=== PATIENT | male | born 1975 | race Caucasian/White ===

== ENCOUNTER 2023-11-25 15:15 | Emergency (ER) | payer OTHER, SELFPAY ==
[2023-11-25 15:26] VITALS: BP 150/96; PULSE 96; RESP 16; TEMP 36.6; O2SAT 96; BMI 31.5
--- NOTE | 2023-11-25 15:47 | DI.RAD.S_ITS ---
PROCEDURE: XR KNEE RT 3V INDICATIONS: knee pain TECHNIQUE: 3 views of the knee were acquired. COMPARISON: None. FINDINGS: Bones: No fractures or dislocations. No suspicious bony lesions. Fire-rc-eewocdsl appearance of tricompartmental arthritic change. Periarticular osteophytes are present without erosions. There is a prominent osteophyte along the medial aspect of the patella. Soft tissues: Moderate effusion. No suspicious soft tissue calcifications. IMPRESSION: Moderate effusion. No visualized acute fracture or dislocation. However, if clinical concern and/or pain persist, short interval imaging followup in 7-10 days is recommended, as occult injury cannot be definitively excluded. Dictated by: Karen Quinones M.D. on 11/25/2023 at 16:20 Approved by: Karen Quinones M.D. on 11/25/2023 at 16:21
--- NOTE | 2023-11-25 16:37 | ED_ITS ---
HPI - Extremity Problem <Alyssia Paul PA-C - Last Filed: 11/25/23 18:35> General Chief complaint: Extremity Problem,Nontraumatic Stated complaint: knee pain Time Seen by Provider: 11/25/23 16:20 Source: patient Mode of arrival: Ambulatory History of Present Illness HPI Narrative: 48yo M presents with concern for right knee pain for 2-3 days, twisted knee and heard a pop while walking around a corner. Has had multiple knee surgeries during career. Has been treating with rachel doe and devika at home which has not worked well for pain. Patient states he has a supportive knee brace with metal bracing on the sides and also has crutches at home. [place] until [place]. Patient will be able to take tomorrow off work but anticipates having to go to work on Tuesday possibly Tuesday will use crutches and try to stay off of his knee as much as possible but does have to be on his feet somewhat work. Related Data Previous Rx's Medication Instructions Recorded hydrocodone 5 mg-acetaminophen 325 1 tab PO Q4-6H PRN pain 3 days #16 11/25/23 mg tablet tabs ondansetron 4 mg disintegrating 4 mg PO Q8H PRN nausea and 11/25/23 tablet vomiting 4 days #12 tabs Allergies Allergy/AdvReac Type Severity Reaction Status Date / Time No Known Drug Allergies Allergy Verified 11/25/23 15:29 Review of Systems <Alyssia Paul PA-C - Last Filed: 11/25/23 18:35> Review of Systems Narrative: See HPI Patient History <Alyssia Paul PA-C - Last Filed: 11/25/23 18:35> Social History Smoking Status: Former smoker Smoking Status: Former smoker alcohol intake frequency: 0-2 drinks per day Substance Use Type: does not use Exam <Alyssia Paul PA-C - Last Filed: 11/25/23 18:35> Narrative Exam Narrative: GENERAL: [48] year old patient appears stated age. Well-developed patient, in mild distress. HEAD: Atraumatic. Normocephalic. EYES: Pupils equal round and reactive. Extraocular motions intact. No scleral icterus. No injection or drainage. ENT: Nose without bleeding, purulent drainage. Airway patent. NECK: Trachea midline. CARDIOVASCULAR: Regular rate and rhythm without murmurs, gallops, or rubs. RESPIRATORY: Clear to auscultation. Breath sounds equal bilaterally. No wheezes, rales, or rhonchi. EXTREMITIES: The affected right knee has tenderness anteriorly at the patellar tendon and significant tenderness over the medial joint line, there is no laxity with grind test or anterior/posterior drawer. There is significant increased pain with varus and valgus stress. There is mild swelling noted anteriorly and medially anteriorly. Strong pedal pulse. No other edema or joint tenderness. NEURO: AOx3. SKIN: No rash or erythema of visible areas Initial Vital Signs Initial Vital Signs: Vital Signs Temperature 97.8 F 11/25/23 15:26 Pulse Rate 96 H 11/25/23 15:26 Respiratory Rate 16 11/25/23 15:26 Blood Pressure 150/96 H 11/25/23 15:26 Pulse Oximetry 96 11/25/23 15:26 Oxygen Delivery Method Room Air 11/25/23 15:26 <Latisha Matos MD - Last Filed: 11/26/23 17:51> Initial Vital Signs Initial Vital Signs: Vital Signs Temperature 97.8 F 11/25/23 15:26 Pulse Rate 96 H 11/25/23 15:26 Respiratory Rate 16 11/25/23 15:26 Blood Pressure 150/96 H 11/25/23 15:26 Pulse Oximetry 96 11/25/23 15:26 Oxygen Delivery Method Room Air 11/25/23 15:26 Course <Alyssia Paul PA-C - Last Filed: 11/25/23 18:35> Orders Ordered: ED Orders 11/25/23 15:47 XR knee RT 3V Stat Vital Signs Vital signs: Vital Signs - 8 hr 11/25/23 15:26 Temperature 97.8 F Pulse Rate 96 H Respiratory Rate 16 Blood Pressure 150/96 H Pulse Oximetry 96 Oxygen Delivery Method Room Air <Latisha Matos MD - Last Filed: 11/26/23 17:51> Orders Ordered: ED Orders 11/25/23 15:47 XR knee RT 3V Stat Vital Signs Vital signs: Vital Signs - 8 hr 11/25/23 15:26 Temperature 97.8 F Pulse Rate 96 H Respiratory Rate 16 Blood Pressure 150/96 H Pulse Oximetry 96 Oxygen Delivery Method Room Air MDM - Extremity (Nontraumatic) <Alyssia Paul PA-C - Last Filed: 11/25/23 18:35> Differential Diagnosis Differential diagnosis: Likely other (Knee sprain/strain) Imaging Data Extremity x-ray #1: Radiologist's Impression: [address] [address] XRay Report Signed Patient: Jimmie Herr MR#: [id number] : 1975 Acct:[id number] Age/Sex: 48 / M Date of Service: 11/25/23 Loc: ED Accession Number: [id number] Procedure: XR knee RT 3V Ordering Provider: Alyssia Paul P.A-C PROCEDURE: XR KNEE RT 3V INDICATIONS: knee pain TECHNIQUE: 3 views of the knee were acquired. COMPARISON: None. FINDINGS: Bones: No fractures or dislocations. No suspicious bony lesions. [id number]-[id number] appearance of tricompartmental arthritic change. Periarticular osteophytes are present without erosions. There is a prominent osteophyte along the medial aspect of the patella. Soft tissues: Moderate effusion. No suspicious soft tissue calcifications. IMPRESSION: Moderate effusion. No visualized acute fracture or dislocation. However, if clinical concern and/or pain persist, short interval imaging followup in 7-10 days is recommended, as occult injury cannot be definitively excluded. Dictated by: Karen Quinones M.D. on 11/25/2023 at 16:20 Approved by: Karen Quinones M.D. on 11/25/2023 at 16:21 [facility] Narrative Medical decision making narrative: This is a 48-year-old male with history of multiple knee surgeries and injuries presenting with concern for knee pain since 3 days ago when he heard and felt pop when turning a corner while walking. Exam and history are suggestive of a knee sprain/strain. Patient declines crutches and knee brace as he already has these at home, [place] can not get in prior to then. He has been tolerating the pain thus far but came in today for further evaluation x-ray and assistance with pain control. X-rays do show a joint effusion. Patient is advised to stay off his leg as much as possible use knee brace and crutches as much as possible until he sees Orthopedics and they can discuss further plan with him. Encouraged to take Tylenol and Motrin/Advil, prescription for hydrocodone for 3 day course to be used as needed, as well as Zofran as patient states he often gets nauseous when he takes opioid pain medicines. Return precautions provided, follow-up plan discussed, all questions answered. Discharge Plan Departure Patient Disposition: Home Clinical Impression: Right knee sprain Qualifiers: Encounter type: initial encounter Involved ligament of knee: unspecified ligament Qualified Code(s): S83.91XA - Sprain of unspecified site of right knee, initial encounter Activity Restrictions/Additional Instructions: *You have been diagnosed with [right knee sprain] *What to do: *Please continue to take your regular medications as directed. [2 ] New medication prescriptions sent to your pharmacy: [Zofran and hydrocodone] [ ] New medication written as a paper prescription [ ] No new medications given *Please follow up with your primary care provider in 2-3 days, call for an appointment. Let them know you were seen in the Emergency Department and that we ask that you be seen in follow up. We will electronically transmit a record of today's note if your PCP is in our system. Because of your previous knee injuries and surgeries you already have crutches and a knee brace, I would strongly encourage you to use both of these as I suspect you did re-injure her knee recently you have a fluid collection in your knee visible on x-ray today although it is difficult to determine the exact nature of your injury with just an x-ray. Recommend he follow up closely with Orthopedics, it sounds [place] I have prescribed a short course of pain medicine for you to be used if needed please do not take this with alcohol or any sedating medications. Start with Tylenol and Motrin or Advil and use the stronger medicine if needed. Also prescribed some antinausea medicine. Try to keep her leg elevated and stay off of it as much as possible over the next few days. Until you can get him in for further evaluation by orthopedics. I I hope you feel better soon. *If you do not have a primary care provider please contact the [facility] Resource line at [phone]. They will ask some questions about your medical history and help get you set up with a doctor in the community. *Return to Emergency Department if you should have any new, worsening or concerning symptoms, such as [fever greater than 101 F, shaking chills, worsening pain, persistent vomiting or other bothersome symptoms] Prescriptions: New hydrocodone-acetaminophen 5-325 mg tablet 1 tab PO Q4-6H PRN (Reason: pain) 3 Days Qty: 16 0RF ondansetron 4 mg tablet,disintegrating 4 mg PO Q8H PRN (Reason: nausea and vomiting) 4 Days Qty: 12 0RF Referrals: Provider,Antonia GE [Primary Care Provider] - Stand Alone Forms: Patient Portal/API ED Sign-out <Latisha Matos MD - Last Filed: 11/26/23 17:51> Cosign ED Attending Cosanilaature Attestation: I did not see this patient. I was available all times for consultation.
[2023-11-25 18:49] VITALS: BP 148/68; PULSE 82; RESP 18; TEMP 36.8; O2SAT 98
== END 2023-11-25 18:50 | disposition home or self-care (01) ==
PROVIDERS: Emergency Provider Student in an Organized Health Care Education/Training Program
DX: S83.91XA Sprain of unspecified site of right knee, initial encounter (principal); X50.1XXA Overexertion from prolonged static or awkward postures, initial encounter
CPT/HCPCS: 73562; 99281; 99283

== ENCOUNTER 2024-03-30 06:34 | Day surgery (SDC) | payer OTHER, SELFPAY ==
[2024-03-30 06:49] VITALS: BP 143/92; PULSE 109; RESP 16; TEMP 36.6; O2SAT 96
[2024-03-30] MEDS: LACTATED RINGERS 1,000 ML 42 ML IV (07:05)
--- NOTE | 2024-03-30 07:40 | PM.HP.1 ---
History of Present Illness History of Present Illness Date Patient Seen: 03/30/24 Time Patient Seen: 07:40 Chief complaint: Screening Colonoscopy Narrative: 49M here for 1st time screening colonoscopy. No fam hx Colon ca. no abdominal concerns PFSH Social History Smoking Status: Former smoker Meds Home Medications and Allergies Home Medications Medication Instructions Recorded Confirmed Type lisinopril 2.5 mg tablet 2.5 mg PO DAILY 03/30/24 03/30/24 History Allergies Allergy/AdvReac Type Severity Reaction Status Date / Time No Known Drug Allergies Allergy Verified 03/30/24 06:47 Exam Vital Signs (past 8 hours): - 03/30/24 06:49 Temperature 97.9 F Pulse Rate 109 H Respiratory Rate 16 Blood Pressure 143/92 H Pulse Oximetry 96 Oxygen Delivery Method Room Air Oxygen Delivery Method Room Air Narrative Exam Narrative: Gen-Adult man alert and oriented Assessment & Plan Assessment & Plan narrative: 49M here for screening colonoscopy. risks benefits alternatives reviewed. he provides his consent to proceed. Time-Based Coding :: [TOTAL MINUTES] spent with patient and on the chart (including review of chart, obtaining history, exam, reviewing outside data, placing orders, documenting exam and treatment plan, and counseling patient) on [DATE].
--- NOTE | 2024-03-30 07:44 | P.OP.COLON_ITS ---
Operative Date/Time/Diagnoses Date of procedure: 03/30/24 Time of procedure: 07:44 Pre-op diagnosis: Colorectal screening Procedure & Clinicians Study performed: Screening colonoscopy Same procedure as scheduled: Yes Indications: Screening Surgeon: Lui Gibson Procedure Notes Procedure in detail: The history and physical was performed/updated and the patient is ASA class is 2. The procedure was discussed in detail with the patient. Potential risks complications including infection, bleeding, missed diagnosis, perforation, need for surgery, and were explained. Their questions were answered and informed consent was obtained. Patient was brought to the procedure room and placed standard monitoring equipment. The patient's vital signs were monitored continuously throughout the entire procedure. Prior to starting time-out was performed. The patient was placed in the left lateral recumbent position. Procedural sedation was administered by anesthesia. Examination began with a thorough inspection of the perianal area there was no evidence of fissures, fistulae, external hemorrhoids or cutaneous malignancy. The colonoscopy scope was then placed into the anal canal and was advanced to the cecum, which was identified by the ileocecal valve, the appendiceal orifice and the confluence of the taenia. The scope was then slowly withdrawn examining colon thoroughly in all directions, irrigating it of any residual stool. The scope was retroflexed within the rectum The patient tolerated the procedure well. They will be discharged once criteria are met. The prep was of fair quality. The withdrawl time was 7 minutes. FINDINGS * Unremarkable colonoscopy. Normal healthy colonic mucosa without mass or polyps. Specimen(s): none sent Impression: Normal colonoscopy Post-procedure Recommendations: Colonoscopy in 10 years Disposition: same day surgery
[2024-03-30 08:05] VITALS: BP 118/83; PULSE 88; RESP 16; TEMP 36.2; O2SAT 95
[2024-03-30 08:12] VITALS: BP 124/86; PULSE 88; RESP 16; O2SAT 98
[2024-03-30 08:23] VITALS: BP 124/74; PULSE 77; RESP 16; TEMP 36.2; O2SAT 98
== END 2024-03-30 08:28 | disposition home or self-care (01) ==
PROVIDERS: PCP Nurse Practitioner Family; Referring Provider Surgery; Visit Provider Surgery
PROC: 0DJD8ZZ Inspection of Lower Intestinal Tract, Via Natural or Artificial Opening Endoscopic (ICD-10-PCS; CPT 45378; principal; 2024-03-30 07:45)
DX: Z12.11 Encounter for screening for malignant neoplasm of colon (principal)
CPT/HCPCS: 45378; J2704